=== PATIENT | female | born 1990 | race African-American/Black ===

== ENCOUNTER 2022-02-27 15:57 | Inpatient (IN) | payer MEDICAID ==
[~2022-02-27] VITALS: Ht 180.3 cm; Wt 71.7 kg
[2022-02-27] MEDS ORDERED: RHO(D) IMMUNE GLOBULIN 300 MCG/SYR IM PRN (17:30)
[2022-02-27] MEDS ORDERED: LANOLIN OINT 7GM TUBE TOP PRN (17:30)
[2022-02-27] MEDS ORDERED: DIPHENHYDRAMINE 25MG CAPSULE PO PRN (17:30)
[2022-02-27] MEDS ORDERED: ACETAMINOPHEN WITH CODEINE 300/30MG TABLET PO PRN (17:30)
[2022-02-27] MEDS ORDERED: IBUPROFEN 400MG TABLET PO PRN (17:30)
[2022-02-27] MEDS ORDERED: HEMORRHOIDAL SUPP PR PRN (17:30)
[2022-02-27] MEDS ORDERED: GLYCERIN/WITCH HAZEL LEAF MEDICATED PAD TOP PRN (17:30)
[2022-02-27] MEDS ORDERED: DEXT 5%/LACTATED RINGERS 1,000 ML IV SCH (17:30)
[2022-02-27] MEDS ORDERED: METHYLERGONOVINE MALEATE 0.2 MG/ML IM PRN (17:30)
[2022-02-27] MEDS ORDERED: BENZOCAINE/LANOLIN/ALOE VERA SPRAY TOP PRN (17:30)
[2022-02-27] MEDS ORDERED: RHO(D) IMMUNE GLOBULIN 300 MCG/SYR IM NR (17:30)
[2022-02-27] MEDS ORDERED: OXYTOCIN 30 UNITS/500ML NS PMX 500 ML IV SCH ×2 (17:30)
[2022-02-27 19:00] VITALS: BP 114/69
[2022-02-27 20:00] VITALS: BP 116/70
[2022-02-27 21:07] LABS: BASOPHILS % 0.5 % (0.0-2.0); HEMATOCRIT. 28.5 % (36.0-48.0); HEMOGLOBIN. 8.8 g/dL (12.0-16.0); LYMPHOCYTES % 7.5 % (20.0-50.0); MEAN CORPUSCULAR HEMOGLOBIN 20.7 pg (28.0-32.0); MEAN CORPUSCULAR VOLUME 67.3 fL (81.0-99.0); MEAN PLATELET VOLUME 7.2 fl (7.4-10.4); MONOCYTES % 2.9 % (2.0-8.0); NEUTROPHILS % 89.1 % (40.0-76.0); PLATELET 414 x1000/uL (130-400); RED BLOOD CELL COUNT 4.24 mill/uL (4.2-5.4); RED CELL DISTRIBUTION WIDTH 19.4 % (11.6-14.6)
[2022-02-27] MEDS: DOCUSATE SODIUM 100MG CAPSULE PO SCH (21:12)
[2022-02-27] MEDS: IBUPROFEN 800MG TABLET PO PRN (21:12)
[2022-02-27] MEDS: SIMETHICONE 80MG TABLET CHEW PO SCH (21:13)
[2022-02-27 21:20] LABS: CHLORIDE 108 mEq/L (98-107)
[2022-02-27 21:35] LABS: PLATELET ESTIMATE SLIGHTLY INCREASED
[2022-02-28] VITALS: BP 5/62
[2022-02-28 04:00] VITALS: BP 117/67
[2022-02-28 05:39] LABS: CLARITY URINE CLEAR (CLEAR); COLOR URINE YELLOW (YELLOW); KETONES URINE TRACE (NEGATIVE); LEUKOCYTE ESTERASE URINE 1+ (NEGATIVE); NITRITE URINE NEGATIVE (NEGATIVE); OCCULT BLOOD URINE 3+ (NEGATIVE); PH URINE 5.5 (4.5-8.0); PROTEIN URINE NEGATIVE (NEGATIVE); SPECIFIC GRAVITY URINE 1.008 (1.005-1.030); UROBILINOGEN URINE 0.2 E.U./dL (0.2-1.0)
[2022-02-28 06:05] LABS: *AMPHETAMINES SCREEN URINE NEGATIVE (NEGATIVE); *BARBITURATES SCREEN URINE NEGATIVE (NEGATIVE); *BENZODIAZEPINES SCREEN URINE NEGATIVE (NEGATIVE); *COCAINE SCREEN URINE NEGATIVE (NEGATIVE); CANNABINOID URINE SCREEN NEGATIVE (NEGATIVE); METHADONE URINE SCREEN NEGATIVE (NEGATIVE); OPIATES URINE SCREEN NEGATIVE (NEGATIVE); PHENCYCLIDINE URINE SCREEN NEGATIVE (NEGATIVE)
[2022-02-28] MEDS ORDERED: FERROUS SULFATE 325MG TABLET PO SCH (07:30)
[2022-02-28 08:00] VITALS: BP 122/72
[2022-02-28] MEDS ORDERED: PRENATAL VIT/FE FUMARATE/FA TABLET PO SCH (09:00)
[2022-02-28 12:45] LABS: BASOPHILS % 0.6 % (0.0-2.0); HEMATOCRIT. 28.4 % (36.0-48.0); HEMOGLOBIN. 8.8 g/dL (12.0-16.0); LYMPHOCYTES % 17.7 % (20.0-50.0); MEAN CORPUSCULAR HEMOGLOBIN 20.8 pg (28.0-32.0); MEAN CORPUSCULAR VOLUME 67.1 fL (81.0-99.0); MONOCYTES % 4.9 % (2.0-8.0); NEUTROPHILS % 75.8 % (40.0-76.0); PLATELET 392 x1000/uL (130-400); RED BLOOD CELL COUNT 4.24 mill/uL (4.2-5.4); RED CELL DISTRIBUTION WIDTH 19.2 % (11.6-14.6)
[2022-02-28 16:00] VITALS: BP 119/75
[2022-02-28 20:00] VITALS: BP 110/55
[2022-02-28] MEDS: DOCUSATE SODIUM 100MG CAPSULE PO SCH (22:51)
[2022-02-28] MEDS: SIMETHICONE 80MG TABLET CHEW PO SCH (22:51)
[2022-02-28] MEDS: IBUPROFEN 800MG TABLET PO PRN (22:52)
[2022-03-01 04:00] VITALS: BP 125/77
[2022-03-01 08:00] VITALS: BP_SYST 127; BP_SYST 97; BP_DIAS 52; BP_DIAS 77
[2022-03-01] MEDS: SIMETHICONE 80MG TABLET CHEW PO SCH (11:08)
== END 2022-03-01 11:35 | disposition home or self-care (01) | DRG 560 ==
LOC: L&D 15:57 → OBSVTOIN 15:57 → 8 EST A/PP 16:14 → 8EST 16:56
PROVIDERS: ADMIT Obstetrics & Gynecology; ATTEND Obstetrics & Gynecology
PROC: 10E0XZZ Delivery of Products of Conception, External Approach (ICD-10-PCS; principal; 2022-02-27)
PROC: 0KQM0ZZ Repair Perineum Muscle, Open Approach (ICD-10-PCS; 2022-02-27)
PROC: 3E0R3BZ Introduction of Anesthetic Agent into Spinal Canal, Percutaneous Approach (ICD-10-PCS; 2022-02-27)
PROC: 00HU33Z Insertion of Infusion Device into Spinal Canal, Percutaneous Approach (ICD-10-PCS; 2022-02-27)
DX: O69.81X0 Labor and delivery complicated by cord around neck, without compression, not applicable or unspecified (principal); Z37.0 Single live birth; O70.1 Second degree perineal laceration during delivery; Z3A.39 39 weeks gestation of pregnancy; Z20.822 Contact with and (suspected) exposure to COVID-19
CPT/HCPCS: 36415; 80053; 80305; 81003; 85025; 86592; 86703; 86762; 86850; 86900; 87340; 99281